=== PATIENT | female | born 1960 | race Caucasian/White ===

== ENCOUNTER 2016-10-10 12:49 | Emergency (ER) | payer SELFPAY ==
[~2016-10-10] VITALS: Ht 160 cm; Wt 63.5 kg
[2016-10-10 12:52] VITALS: Ht 160 cm; Wt 63.5 kg
== END 2016-10-10 14:20 | disposition left against medical advice (07) ==
LOC: FTE 12:49
DX: Z53.21 Procedure and treatment not carried out due to patient leaving prior to being seen by health care provider (principal)